=== PATIENT | female | born 1940 | race Caucasian/White ===

== ENCOUNTER → 2016-08-14 | Outpatient (CLI) | payer MEDICARE | LOC: KOH-I 10:11 | DX: M54.5 Low back pain (principal); M47.816 Spondylosis without myelopathy or radiculopathy, lumbar region | CPT/HCPCS: 72110 ==

== ENCOUNTER 2017-01-25 18:49 | Emergency (ER) | payer MEDICARE | END 2017-01-25 20:30 | disposition home or self-care (01) | LOC: ER1 18:49 | DX: R51 Headache (principal); I10 Essential (primary) hypertension; E11.9 Type 2 diabetes mellitus without complications; J45.909 Unspecified asthma, uncomplicated | CPT/HCPCS: 70450; 99284 ==

== ENCOUNTER → 2020-09-14 | Outpatient (CLI) | payer MEDICARE | LOC: EMI 08:00 | DX: F09 Unspecified mental disorder due to known physiological condition (principal); R90.82 White matter disease, unspecified; J32.9 Chronic sinusitis, unspecified; H70.91 Unspecified mastoiditis, right ear | CPT/HCPCS: 70551 ==